=== PATIENT | male | born 1955 | race African-American/Black ===

== ENCOUNTER 2017-01-17 13:35 | Emergency (ER) | payer MEDICARE ==
[~2017-01-17] VITALS: Ht 180.3 cm; Wt 101.2 kg
[2017-01-17 13:55] VITALS: BP 125/80
[2017-01-17] MEDS ORDERED: ORPH100T PO (14:02)
[2017-01-17] MEDS ORDERED: HYDR-971 PO (14:02)
--- NOTE | 2017-01-17 14:02 | PHYS DOC ---
Past Medical History Past Medical History: Hypertension Past Surgical History: Other Additional Past Surgical Histo: R WRIST,L ANKLE ORIF,CATARACT Alcohol Use: None Drug Use: None Adult General Chief Complaint Chief Complaint: BACK PAIN OR INJURY HPI HPI Patient is a 61 year old male presents emergency Department with complaint of nonradiating right lower back pain that is atraumatic in nature. Patient states is been ongoing for 3 days. Patient denies any history of spinal column or spinal cord injuries. Patient denies any history of neuromuscular disease. Patient denies saddle anesthesia or incontinence of urine and bowel. Review of Systems Review of Systems Constitutional: Denies fever or chills [] Eyes: Denies change in visual acuity, redness, or eye pain [] HENT: Denies nasal congestion or sore throat [] Respiratory: Denies cough or shortness of breath [] Cardiovascular: No additional information not addressed in HPI [] GI: Denies abdominal pain, nausea, vomiting, bloody stools or diarrhea [] : Denies dysuria or hematuria [] Musculoskeletal: Denies back pain or joint pain [] Integument: Denies rash or skin lesions [] Neurologic: Denies headache, focal weakness or sensory changes [] Endocrine: Denies polyuria or polydipsia [] Allergies Allergies Allergies Coded Allergies Type Severity Reaction Last Updated Verified No Known Drug Allergies 02/21/16 No Physical Exam Physical Exam Constitutional: Well developed, well nourished, no acute distress, non-toxic appearance. [] HENT: Normocephalic, atraumatic, bilateral external ears normal, oropharynx moist, no oral exudates, nose normal. [] Eyes: PERRLA, EOMI, conjunctiva normal, no discharge. [] Neck: Normal range of motion, no tenderness, supple, no stridor. [] Cardiovascular:Heart rate regular rhythm, no murmur [] Lungs & Thorax: Bilateral breath sounds clear to auscultation [] Abdomen: Bowel sounds normal, soft, no tenderness, no masses, no pulsatile masses. [] Skin: Warm, dry, no erythema, no rash. [] Back: Patient's back is essentially normal in appearance without any overlying skin lesions suggestive of shingles. There are no abrasions or bruising. There is tenderness to palpation to the right paraspinous soft tissues at the level of L3-L5. There is no midline tenderness, step-off or deformity. There is no CVA tenderness. Extremities: No tenderness, no cyanosis, no clubbing, ROM intact, no edema. [] Neurologic: Alert and oriented X 3, normal motor function, normal sensory function, no focal deficits noted. [] Psychologic: Affect normal, judgement normal, mood normal. [] Current Patient Data Vital Signs Vital Signs Date Time Temp Pulse Resp B/P Pulse Ox O2 Delivery O2 Flow Rate FiO2 01/17/17 13:55 97.8 85 18 96 Room Air 97.8 EKG EKG [] Radiology/Procedures Radiology/Procedures [] Course & Med Decision Making Course & Med Decision Making Pertinent Labs and Imaging studies reviewed. (See chart for details) [] Dragon Disclaimer Dragon Disclaimer This electronic medical record was generated, in whole or in part, using a voice recognition dictation system. Departure Departure Impression: Primary Impression: Low back pain Disposition: HOME, SELF-CARE Condition: GOOD Referrals: [facility] (PCP) Patient Instructions: Back Pain, Adult, [id number] Additional Instructions: 1. Take the medications as prescribed. 2. Review the discharge instructions provided for self-care and reasons to return the emergency department. 3. Contact her primary care doctor Thursday morning to schedule follow-up appointment to be seen this coming week. Scripts Hydrocodone/Apap 5-325 ([place] 5-325 Tablet)1 Each Tablet1 Tab PO PRN Q6HRS PRN PAIN #15 TAB Prov:LUPILLO SULLIVAN 01/17/17 Orphenadrine Citrate 100 Mg Tablet.er100 Mg PO twice a day muscle relaxer #14 Prov:LUPILLO SULLIVAN 01/17/17 LUPILLO SULLIVAN Jan 17, 2017 14:02
== END 2017-01-17 14:10 | disposition home or self-care (01) ==
LOC: ER 13:35
DX: M54.5 Low back pain (principal); I10 Essential (primary) hypertension; Z98.890 Other specified postprocedural states
CPT/HCPCS: 99283

== ENCOUNTER 2021-05-04 13:56 | Emergency (ER) | payer OTHER, MEDICARE ==
[~2021-05-04] VITALS: Ht 180.3 cm; Wt 109.0 kg
[~2021-05-04 13:56] MED LIST: HYDR-3164 PO; ORPH100T PO
[2021-05-04 14:50] VITALS: BP 120/74
--- NOTE | 2021-05-04 15:45 | RAD ---
XR RIBS MIN 3 VIEWS RT W/PA CHEST 05/04/2021 3:22 PM INDICATION: Right-sided chest wall pain. COMPARISON: None available. TECHNIQUE: 2 views of the right chest. AP view the chest. FINDINGS/ IMPRESSION: The cardiomediastinal silhouette is within normal limits. Lungs are clear. There are no significant pleural effusions. There is no pulmonary vascular congestion. No pneumothora x. Evaluation of the ribs is limited by technique. There may be mildly displaced anterior right fifth, s ixth and seventh rib fractures. Further evaluation with CT chest could be of benefit. Electronically signed by: Shanti Padgett MD (05/04/2021 3:43 PM) [id number]
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
[2021-05-04] MEDS ORDERED: HYDROcodone/APAP 5/325MG 1 TAB TABLET PO ONE (16:45)
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
[2021-05-04] MEDS ORDERED: HYDR-2761 PO (17:21)
--- NOTE | 2021-05-05 02:35 | EKG ---
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
== END 2021-05-04 17:31 | disposition home or self-care (01) ==
LOC: ER 13:56
DX: S22.41XA Multiple fractures of ribs, right side, initial encounter for closed fracture (principal); J98.11 Atelectasis; I10 Essential (primary) hypertension; Z87.891 Personal history of nicotine dependence; V29.49XA Motorcycle driver injured in collision with other motor vehicles in traffic accident, initial encounter; Y92.488 Other paved roadways as the place of occurrence of the external cause; Y99.8 Other external cause status; Y93.89 Activity, other specified
CPT/HCPCS: 71101; 71250; 93005; 99284-25

== ENCOUNTER 2021-09-05 13:13 | Emergency (ER) | payer MEDICARE, OTHER ==
[~2021-09-05 13:13] MED LIST changes: +HYDR-2761 PO
[2021-09-05] MEDS ORDERED: AZIT250T6 PO (16:18)
== END 2021-09-05 14:29 | disposition left against medical advice (07) ==
LOC: ER 13:13
DX: R06.02 Shortness of breath (principal); Z53.21 Procedure and treatment not carried out due to patient leaving prior to being seen by health care provider

== ENCOUNTER 2021-09-05 14:34 | Emergency (ER) | payer MEDICARE ==
[~2021-09-05] VITALS: Ht 172.7 cm; Wt 109.2 kg
--- NOTE | 2021-09-05 15:32 | PHYS DOC ---
Past Medical History Past Medical History: Hypertension Past Surgical History: Other Additional Past Surgical Histo: R WRIST,L ANKLE ORIF,CATARACT Smoking Status: Never Smoker Alcohol Use: None Drug Use: None General Adult EDM: Chief Complaint: SHORTNESS OF BREATH HPI: HPI: Patient is a 65-year-old male who presents to the emergency department stating "I have the flu". Patient is reporting a sore throat and shortness of breath. He reports that his symptoms started today. Patient denies shortness of breath, fever, cough, nausea, vomiting, chest pain, abdominal pain, travel, sick exposures. Patient's vital signs are stable, afebrile and he is in no acute distress. Review of Systems: Review of Systems: 14 body systems of the review of systems have been reviewed. See HPI for pertinent positive and negative responses, otherwise all other systems are negative, nonpertinent or noncontributory Heart Score: C/O Chest Pain: No Risk Factors: Risk Factors: DM, Current or recent (<one month) smoker, HTN, HLP, family history of CAD, obesity. Risk Scores: Score 0 - 3: 2.5% MACE over next 6 weeks - Discharge Home Score 4 - 6: 20.3% MACE over next 6 weeks - Admit for Clinical Observation Score 7 - 10: 72.7% MACE over next 6 weeks - Early Invasive Strategies Allergies: Allergies: Allergies Coded Allergies Type Severity Reaction Last Updated Verified No Known Drug Allergies 02/21/16 No Physical Exam: PE: Constitutional: Well developed, well nourished, no acute distress, non-toxic appearance. [] HENT: Normocephalic, atraumatic, bilateral external ears normal, oropharynx moist, postnasal drainage noted, 2+ tonsillar enlargement without exudate, oropharyngeal erythematous, no phonation changes, uvula midline, no trismus no oral exudates, nose normal. [] Eyes: PERRL, EOMI, conjunctiva normal, no discharge. [] Neck: Normal range of motion, no tenderness, no palpable cervical lymphadenopathy, supple, no stridor. [] Cardiovascular:Heart rate regular rhythm, no murmur [] Lungs & Thorax: Bilateral breath sounds clear to auscultation [] Abdomen: Bowel sounds normal, soft, no tenderness, no masses, no pulsatile masses. [] Skin: Warm, dry, no erythema, no rash. [] Back: Normal range of motion Extremities: No tenderness, no cyanosis, no clubbing, ROM intact, no edema. [] Neurologic: Alert and oriented X 3, normal motor function, normal sensory function, no focal deficits noted. [] Psychologic: Affect normal, judgement normal, mood normal. [] EKG: EKG: [] Radiology/Procedures: Radiology/Procedures: []PROCEDURE: PORTABLE CHEST 1V Single AP view of the chest. Comparison: 05/04/2021. Indication: Possible Covid Findings: The heart is not enlarged. There is no pneumothorax or effusion. Next interstitial and airspace disease is identified Impression: 1. Findings suggest Covid pneumonia. Electronically signed by: Yasemin Ambrose MD (09/05/2021 3:52 PM) [facility] DICTATED and SIGNED BY: YASEMIN AMBROSE MD DATE: 09/05/21 [id number] 0 Course & Med Decision Making: Course & Med Decision Making Pertinent Labs and Imaging studies reviewed. (See chart for details) [] Patient presents to the emergency department today for sore throat and shortness of breath that started today. Patient believes he has influenza. Patient's work-up in the ER consisted of Covid testing, influenza and strep testing. Chest x-ray was performed to rule out pneumonia. The radiologist read patient's chest x-ray as findings consistent with Covid pneumonia. Patient be treated with an antibiotic. Patient was given first dose in the emergency department today. Patient's rapid strep test was negative. ER nurse notified me that patient refused Covid and influenza testing. Due to the read of the chest x-ray, it is assumed that patient has Covid pneumonia. Patients vital signs continue to be stable, he is not requiring any oxygen and is in no acute distress. Patient advised to take antibiotic as directed and follow-up with his doctor. I discussed with patient all findings and diagnostic testing as well as the need to follow-up with PCP for further evaluation and treatment or return to the ER if any new or worsening symptoms. Strict return precautions were also discussed at length. Patient voiced understanding and agreement with the plan. Patient is hemodynamically stable at the time of disposition. Dragon Disclaimer: Dragon Disclaimer: This electronic medical record was generated, in whole or in part, using a voice recognition dictation system. Departure Departure Impression: Primary Impression: Pneumonia Qualified Codes: J18.9 - Pneumonia, unspecified organism Additional Impression: Person under investigation for COVID-19 Disposition: HOME / SELF CARE / HOMELESS Condition: GOOD Referrals: UNKNOWN PCP NAME (PCP) Patient Instructions: Pneumonia, Adult Additional Instructions: You were seen in the emergency department today for sore throat and shortness of breath. Your rapid strep test was negative. You refused your influenza and Covid testing. A chest x-ray was performed that did show findings consistent with Covid pneumonia. You will be treated with an antibiotic. You were given your first dose in the emergency department. You are being discharged home with a prescription, please take all of this medication and please take it as directed. For your pain you can take Tylenol or ibuprofen. For your sore throat you can use warm salt water gargles. You will need to self isolate for 10 days following your symptom onset. I would advise you to purchase a pulse oximeter at the pharmacy and monitor your heart rate and oxygen saturations. Please return to the emergency department if your heart rate goes above 100 your oxygen saturation goes below 90%. Please follow-up with your primary care provider tomorrow regarding your ER visit. Please return to the emergency department if you develop shortness of breath, chest pain, high fevers refractory to treatment, intractable nausea or vomiting or any new or worsening concerns. Scripts Azithromycin (AZITHROMYCIN TABLET) 250 Mg Tablet 250 MG PO DAILY for ANTI-BIOTIC for 4 Days, #4 TAB 0 Refills Prov: FIDEL SOTELO APRN 09/05/21 FIDEL SOTELO APRN Sep 05, 2021 15:31
--- NOTE | 2021-09-05 15:55 | RAD ---
Single AP view of the chest. Comparison: 05/04/2021. Indication: Possible Covid Findings: The heart is not enlarged. There is no pneumothorax or effusion. Next interstitial and airspace dise ase is identified Impression: 1. Findings suggest Covid pneumonia. Electronically signed by: Silvio Xie MD (09/05/2021 3:52 PM) [facility]
[2021-09-05] MEDS ORDERED: AZITHROMYCIN 250 MG TABLET. PO ONE (16:00)
[2021-09-05] MEDS ORDERED: AZIT250T6 PO (16:18)
[2021-09-05 17:04] VITALS: BP 149/83
== END 2021-09-05 17:17 | disposition home or self-care (01) ==
LOC: ER 14:34
DX: J18.9 Pneumonia, unspecified organism (principal); I10 Essential (primary) hypertension; Z20.822 Contact with and (suspected) exposure to COVID-19
CPT/HCPCS: 71045; 87070; 87147; 87880; 99283; 99284